=== PATIENT | female | born 1945 | race Caucasian/White ===

== ENCOUNTER 2021-10-12 15:02 | Inpatient (IN) | payer OTHER ==
[~2021-10-12] VITALS: Ht 165.1 cm; Wt 63.5 kg
[2021-10-12 15:06] VITALS: BP 135/76
--- NOTE | 2021-10-12 15:06 | NUR ---
PATIENT TO LOBBY
[2021-10-12] MEDS ORDERED: MORPHINE SULFATE 4 MG/ML SYR IVP ONE (15:10)
[2021-10-12] MEDS ORDERED: ONDANSETRON 4 MG/2 ML VIAL IVP ONE (15:10)
[2021-10-12 16:10] LABS: BASOPHILS # (AUTO) 0.1 K/uL (0.00-0.22); BASOPHILS % (AUTO) 0.6 % (0.0-2.0); EOSINOPHILS # (AUTO) 0.1 K/uL (0-0.4); EOSINOPHILS % (AUTO) 0.4 % (0.0-4.0); HEMATOCRIT 40.7 % (36-48); HEMOGLOBIN 13.2 g/dL (12.0-16.0); LYMPHOCYTES # (AUTO) 2.2 K/uL (2.5-16.5); MEAN CORPUSCULAR HEMOGLOBIN 29 pg (27-31); MEAN CORPUSCULAR HGB CONC 32 g/dL (33-37); MEAN CORPUSCULAR VOLUME 88.2 fL (80-94); MONOCYTES # (AUTO) 0.8 K/uL (0.8-1.0); MONOCYTES % (AUTO) 4.5 % (1.7-9.3); NEUTROPHILS # (AUTO) 15.3 K/uL (1.8-7.7); NEUTROPHILS % (AUTO) 82.5 % (42.2-75.2); PLATELET COUNT (AUTO) 516 K/uL (140-450); RED BLOOD CELL COUNT(AUTO) 4.62 MIL/uL (4.20-5.40); RED CELL DISTRIBUTION WIDTH 14.8 % (11.6-13.7); WHITE BLOOD COUNT (AUTO) 18.5 K/uL (4.8-10.8)
[2021-10-12] MEDS ORDERED: MORPHINE SULFATE 4 MG/ML SYR ONE (16:36)
[2021-10-12] MEDS ORDERED: ONDANSETRON 4 MG/2 ML VIAL ONE (16:36)
[2021-10-12 16:41] LABS: ALBUMIN 3.6 g/dL (3.4-5.0); ANION GAP 18.6 (8-16); ASPARTATE AMINOTRANSFERASE 25 U/L (15-37); CARBON DIOXIDE 25.3 mmol/L (21-32); CHLORIDE 98 mmol/L (98-107); CREATININE 0.9 mg/dL (0.6-1.3); GLUCOSE 175 mg/dL (74-106); MAGNESIUM 1.5 mg/dL (1.8-2.4); POTASSIUM 3.9 mmol/L (3.5-5.1); SODIUM SERUM 138 mmol/L (136-145); TOTAL BILIRUBIN 1.3 mg/dL (0.0-1.0); UREA NITROGEN, BLOOD 14 mg/dL (7-18)
--- NOTE | 2021-10-12 16:45 | NUR ---
SUNDAY SWABBED AND GIVEN TO LAB AT THIS TIME
[2021-10-12 17:15] LABS: LIPASE 3892 U/L (73-393)
[2021-10-12] MEDS ORDERED: NACL 0.9% 2,000 ML IV ONE (19:55)
[2021-10-12] MEDS ORDERED: PIPERACILLIN/TAZOBACTAM 3.375 GM in DEXTROSE 5% 50 ML IV ONE (19:55)
[2021-10-12] MEDS: NACL 0.9% 1,000 ML IV SCH ×3 (20:05→21:00)
--- NOTE | 2021-10-12 20:10 | NUR ---
Dr. Major called with request for lab results. Dr. Major verbally informed of lab results over phone. Dr. Major verbalized understanding, stated "I'll come see her," but did not give any new orders.
[2021-10-12] MEDS ORDERED: PIPERACILLIN/TAZOBACTAM 3.375 GM VIAL IV ONE ×2 (20:36→21:00)
[2021-10-12] MEDS ORDERED: ONDANSETRON 4 MG/2 ML VIAL IVP PRN (20:40)
[2021-10-12] MEDS ORDERED: MORPHINE SULFATE 2 MG/ML SYR IVP ONE (20:40)
[2021-10-12] MEDS ORDERED: ACETAMINOPHEN 325 MG TAB PO PRN (20:45)
[2021-10-12] MEDS ORDERED: ZOLPIDEM 10 MG TAB PO PRN (20:45)
[2021-10-12] MEDS ORDERED: DOCUSATE SODIUM 100 MG GELCAP PO PRN (20:45)
[2021-10-12] MEDS ORDERED: POTASSIUM CHLORIDE 10 MEQ TABER PO PRN (20:45)
[2021-10-12] MEDS ORDERED: METO25TA PO (21:42)
[2021-10-12] MEDS ORDERED: ATOR10TA PO (21:42)
[2021-10-12] MEDS ORDERED: ONDA-188 PO (21:42)
[2021-10-12] MEDS ORDERED: LOSA1TAB PO (21:42)
[2021-10-12] MEDS ORDERED: MIRABULK PO (21:42)
[2021-10-12] MEDS ORDERED: SENN1TAB40 PO (21:42)
[2021-10-12] MEDS ORDERED: ASPI-1822 PO (21:42)
[2021-10-13] MEDS ORDERED: MAG SULF 2000 MG/WATER PREMIX 50 ML IV PRN
[2021-10-13 00:44] LABS: PROTHROMBIN TIME 10.9 secs (10.8-13.4)
--- NOTE | 2021-10-13 00:47 | NUR ---
URINE COLLECTED AND TAKEN TO LAB.
[2021-10-13 01:04] LABS: APPEARANCE,URINE CLEAR (CLEAR); BILIRUBIN,URINE 1+ (NEGATIVE); BLOOD, URINE TRACE-I (NEGATIVE); COLOR,URINE YELLOW (YELLOW); LEUKOCYTE ESTERASE ,URINE NEGATIVE (NEGATIVE); NITRITE, URINE NEGATIVE (NEGATIVE); UGLUCOSE NEGATIVE (NEGATIVE)
[2021-10-13 01:29] LABS: RBC,URINE 0-5 /HPF (0-5); WBC,URINE 0-5 /HPF (0-5)
[2021-10-13] MEDS: NACL 0.9% 1,000 ML IV SCH ×4 (02:50→20:24)
[2021-10-13] MEDS ORDERED: PIPERACILLIN/TAZOBACTAM 3.375 GM in DEXTROSE 5% 50 ML IV SCH ×2 (03:00→04:00)
[2021-10-13] MEDS ORDERED: PIPERACILLIN/TAZOBACTAM 3.375 GM VIAL IV ONE ×3 (04:41→20:14)
[2021-10-13 06:52] LABS: BASOPHILS # (AUTO) 0.1 K/uL (0.00-0.22); BASOPHILS % (AUTO) 0.8 % (0.0-2.0); EOSINOPHILS # (AUTO) 0.1 K/uL (0-0.4); EOSINOPHILS % (AUTO) 1.1 % (0.0-4.0); HEMATOCRIT 33.5 % (36-48); HEMOGLOBIN 11.1 g/dL (12.0-16.0); LYMPHOCYTES # (AUTO) 3.4 K/uL (2.5-16.5); LYMPHOCYTES % (AUTO) 30.3 % (20.5-51.1); MEAN CORPUSCULAR HEMOGLOBIN 29 pg (27-31); MEAN CORPUSCULAR HGB CONC 33 g/dL (33-37); MEAN CORPUSCULAR VOLUME 87.9 fL (80-94); MONOCYTES # (AUTO) 1.2 K/uL (0.8-1.0); MONOCYTES % (AUTO) 11.2 % (1.7-9.3); NEUTROPHILS # (AUTO) 6.3 K/uL (1.8-7.7); NEUTROPHILS % (AUTO) 56.6 % (42.2-75.2); PLATELET COUNT (AUTO) 421 K/uL (140-450); RED BLOOD CELL COUNT(AUTO) 3.81 MIL/uL (4.20-5.40); RED CELL DISTRIBUTION WIDTH 14.8 % (11.6-13.7); WHITE BLOOD COUNT (AUTO) 11.1 K/uL (4.8-10.8)
[2021-10-13 07:03] LABS: ANION GAP 8.9 (8-16); CARBON DIOXIDE 26.7 mmol/L (21-32); CHLORIDE 105 mmol/L (98-107); CREATININE 0.6 mg/dL (0.6-1.3); GLUCOSE 109 mg/dL (74-106); POTASSIUM 3.6 mmol/L (3.5-5.1); SODIUM SERUM 137 mmol/L (136-145); UREA NITROGEN, BLOOD 12 mg/dL (7-18)
--- NOTE | 2021-10-13 07:23 | NUR ---
Change of shift report given to AM shift nurse Veto Chauhan RN. AM shift nurse Veto Chauhan RN verbalized understanding of report, no further questions.
--- NOTE | 2021-10-13 09:36 | NUR ---
US TECH BEDSIDE TO DO ABDOMINAL US.
[2021-10-13] MEDS: PIPERACILLIN/TAZOBACTAM 3.375 GM in DEXTROSE 5% 50 ML IV SCH ×2 (13:35→20:24)
[2021-10-13] MEDS: MORPHINE SULFATE 2 MG/ML SYR IVP PRN ×2 (13:37→22:49)
[2021-10-13] MEDS: ONDANSETRON 4 MG/2 ML VIAL IVP PRN ×2 (13:38→22:56)
--- NOTE | 2021-10-13 14:07 | NUR ---
Pt keeps co hungry. dr. Parada was called for dietary. but Dr. Parada ordered still keep NPO. Possible to drain the abcess. pending to transfer.
--- NOTE | 2021-10-13 16:00 | NUR ---
RECEIVED PATIENT REPORT FROM ER NURSE FOR CONTINUITY OF CARE. ADMITTING DX OF ACUTE PANCREATITIS AND SEPSIS. HX OF PANCREATIC CA. AOX4, ABLE TO VERBALIZE NEEDS. ON ROOM AIR, NO DISTRESS NOTED. NO C/O PAIN. IV ON RAC 20 GAUGE, AND RH 20G RUNNING NS AT 150ML/HR. SKIN IS WARM, DRY, AND INTACT, WITH SURGICAL SCAR. DENIES PAIN AT THE MOMENT. PLAN OF CARE DISCUSSED. SAFETY PRECAUTIONS IN PLACE. CALL LIGHT WITHIN REACH. WILL CONTINUE TO MONITOR
--- NOTE | 2021-10-13 16:00 | NUR ---
PT GOT ROOM 104A. SENT PT TO TELE WITH VIOLA WITH STUDENT NURSE ASSISTANCE. REPORT GIVEN BEDSIDE TO ACCEPTING NURSE.
[2021-10-13 16:53] VITALS: BP 131/55
--- NOTE | 2021-10-13 18:00 | NUR ---
NO SIGNIFICANT CHANGE NOTED, RESTING IN BED, NO C/O PAIN, NO RESPIRATORY DISTRESS
--- NOTE | 2021-10-13 18:15 | NUR ---
PT'S SON AT BEDSIDE
--- NOTE | 2021-10-13 18:30 | NUR ---
ASSISTED PT TO COMMODE
--- NOTE | 2021-10-13 19:30 | NUR ---
RECEIVED BEDSIDE REPORT FROM DAY SHIFT RN FOR CONTINUITY OF CARE. PT IS AWAKE WITH SON BY BEDSIDE. PT IS AAOX4 ON RA. PT HAS BEDSIDE COMMODE AND USES IT WITH ASSISTANCE. PT HAS RIGHT HAND 20 GAUGE AND RIGHT AC 20 GAUGE. PT HAS NS 150 CC/HR. PT DENIES ANY PAIN RIGHT NOW. PLAN OF CARE DISCUSSED. WILL CONTINUE TO MONITOR THE PT.
[2021-10-13 20:00] VITALS: BP 129/43
--- NOTE | 2021-10-13 20:32 | NUR ---
ALL DUE MEDS GIVEN. NO ADVERSE REACTION NOTED. WILL CONTINUE TO MONITOR THE PT.
--- NOTE | 2021-10-13 23:55 | NUR ---
PT COMPLAIN OF ABD PAIN AND WANTED MORPHINE. MORPHINE GIVEN PER MD ORDER. NO OTHER COMPLAINS. WILL CONTINUE TO MONITOR THE PT.
[2021-10-14] VITALS: BP 140/54
--- NOTE | 2021-10-14 02:12 | NUR ---
PT IS SLEEPING COMFORTABLY IN BED. PT IS NOT IN ANY RESPIRATORY DISTRESS. CALL LIGHT WITHIN REACH. ALL SAFETY MEASURES TAKEN. WILL CONTINUE TO MONITOR THE PT.
[2021-10-14 04:00] VITALS: BP 127/62
[2021-10-14] MEDS ORDERED: PIPERACILLIN/TAZOBACTAM 3.375 GM VIAL IV ONE (04:00)
[2021-10-14] MEDS: PIPERACILLIN/TAZOBACTAM 3.375 GM in DEXTROSE 5% 50 ML IV SCH ×3 (04:14→20:41)
[2021-10-14] MEDS: NACL 0.9% 1,000 ML IV SCH ×3 (04:14→17:28)
--- NOTE | 2021-10-14 04:20 | NUR ---
SCHEDULE MEDS GIVEN. NO ADVERSE REACTION NOTED. PT DENIES ANY PAIN RIGHT NOW AND HAS NO COMPLAINS. WILL CONTINUE TO MONITOR THE PT.
[2021-10-14 06:37] LABS: ANION GAP 11.7 (8-16); CHLORIDE 108 mmol/L (98-107); CREATININE 0.6 mg/dL (0.6-1.3); GLUCOSE 103 mg/dL (74-106); POTASSIUM 3.7 mmol/L (3.5-5.1); SODIUM SERUM 142 mmol/L (136-145); UREA NITROGEN, BLOOD 10 mg/dL (7-18)
[2021-10-14 07:11] LABS: BASOPHILS # (AUTO) 0.1 K/uL (0.00-0.22); BASOPHILS % (AUTO) 0.8 % (0.0-2.0); EOSINOPHILS # (AUTO) 0.1 K/uL (0-0.4); EOSINOPHILS % (AUTO) 0.8 % (0.0-4.0); HEMATOCRIT 32.1 % (36-48); HEMOGLOBIN 10.4 g/dL (12.0-16.0); LYMPHOCYTES # (AUTO) 2.9 K/uL (2.5-16.5); LYMPHOCYTES % (AUTO) 21.1 % (20.5-51.1); MEAN CORPUSCULAR HEMOGLOBIN 29 pg (27-31); MEAN CORPUSCULAR HGB CONC 32 g/dL (33-37); MEAN CORPUSCULAR VOLUME 89.1 fL (80-94); MONOCYTES # (AUTO) 1.4 K/uL (0.8-1.0); MONOCYTES % (AUTO) 10.2 % (1.7-9.3); NEUTROPHILS # (AUTO) 9.1 K/uL (1.8-7.7); NEUTROPHILS % (AUTO) 67.1 % (42.2-75.2); PLATELET COUNT (AUTO) 395 K/uL (140-450); RED CELL DISTRIBUTION WIDTH 14.4 % (11.6-13.7); WHITE BLOOD COUNT (AUTO) 13.6 K/uL (4.8-10.8)
--- NOTE | 2021-10-14 07:18 | NUR ---
ENDORSED PT TO DAY SHIFT RN FOR CONTINUITY OF CARE. PT IS STABLE.
[2021-10-14 08:00] VITALS: BP 133/64
--- NOTE | 2021-10-14 10:39 | NUR ---
DC PLANNING: ORDER RECEIVED FOR [facility] TRANSFER FOR DRAINAGE OF PANCREATIC CYST. ORDER FAXED TO [facility], PER LAST MANUEL AT [facility] TRANSFER WILL NOT BE AUTHORIZED PATIENT CAN HAVE THIS DONE OP. REVIEW OF GI NOTES INDICATE THAT PATIENT HAS BEEN GOING TO [facility] IN THE PAST FOR THIS PROCEDURE. CM WILL FOLLOW. Addendum: 10/14/21 at 1522 by Karen To CM DC PLANNING: THE PATIENT PRESENTED FROM HOME WITH C/O DIFFUSE ABDOMINAL PAIN. NEWLY DIAGNOSES WITH PANCREATIC CANCER WITH PARTIAL SPLENECTOMY AND PARTIAL PANCREATECTOMY AT [facility] ON August. WBC'S 18.5, LIPASE 3892, ANION GAP 18.6, TOTAL BILI 1.3. CT ABD/PELVIS SHOWS HYPODENSE PANCREATIC MASS SUSPICIOUS FOR ABSCESS. ORDERS FOR GI CONSULT, STARTED ON ZOSYN AND IVF'S. LAST SPOKE WITH THE PATIENT AT BEDSIDE AND CONFIRMED HER ADDRESS AND PHONE NUMBER. SHE LIVES IN A SINGLE STORY HOUSE ALONE BUT HER TWO SONS LIVE IN CLOSE PROXIMITY ON THE SAME BLOCK. THE PATIENT HAS NOT HAD AN APPETITE SINCE HER SURGERY IN AUGUST AND STATES HER ONCOLOGIST DR CALDWELL WOULD LIKE HER TO GAIN WEIGHT BEFORE STARTING CHEMOTHERAPY. SHE HAS DME OF A FWW AND WC AND IS INDEPENDENT IN ALL ACTIVITIES. SHE HAD ONE HOME HEALTH VISIT AFTER HER HOSPITALIZATION IN AUGUST BUT CAN'T REMEMBER THE AGENCY NAME. LAST SPOKE WITH KALEB AT [facility], INSURANCE WILL AUTHORIZE HER PANCREATIC CYST/ABSCESS DRAINAGE AND WILL IDENTIFY A CONTRACTED PROVIDER BUT THE PATIENT WILL NEED TO MAKE HER OWN APPOINTMENT. THE PATIENTS FAMILY WILL PROVIDE TRANSPORTATION WHEN SHE IS STABLE FOR DC, CM WILL FOLLOW. Addendum: 10/15/21 at 1051 by Karen To CM DC PLANNING: ORDER FOR OUTPATIENT DRAINAGE OF PANCREATIC CYST FAXED TO [facility], WILL WAIT FOR INFORMATION ON AUTHORIZED MD AND WILL GIVE THIS TO THE PATIENT. LAST ALSO SPOKE WITH HER SON KATELYN BY PHONE AND ANSWERED QUESTIONS ABOUT LOS AND INSURANCE INVOLVEMENT. ENDORSED THAT [facility] WILL PROVIDE MD INFORMATION FOR PATIENT/FAMILY TO ARRANGE OP PROCEDURE, LAST WILL ALSO SPEAK WITH THE MD AND PROVIDE ANY INFORMATION THEY NEED TO PROCEED. FAMILY WOULD LIKE THE PATIENT TO DC ON PAIN MEDICATION AND ASKED ABOUT CONTINUING ABX AFTER DC, LAST PASSED THESE CONCERNS TO THE ATTENDING MD. LAST WILL FOLLOW. Addendum: 10/15/21 at 1529 by Karen To CM DC PLANNING: LAST HAS CALLED [facility] SEVERAL TIMES TO ASK FOR AN UPDATE ON INFORMATION REGARDING THE MD AUTHORIZED FOR THE PATIENTS PROCEDURE, NO RESPONSE YET. CM SPOKE WITH THE PATIENT AT BEDSIDE TO ENDORSE THAT CM WILL CALL HER WITH THE INFORMATION REGARDING THIS ONCE IT'S RECEIVED FROM [facility]. CM WILL FOLLOW.
[2021-10-14 12:00] VITALS: BP 133/64
--- NOTE | 2021-10-14 15:01 | NUR ---
PATIENT HAS BEEN SCREENED AND CATEGORIZED HIGH NUTRITION RISK. PATIENT WILL BE SEEN WITHIN 1-2 DAYS OF ADMISSION. 10/14/21 REFERRAL RECEIVED FOR UNINTENTIONAL WEIGHT LOSS AND DECREASED APPETITE [address]
[2021-10-14] MEDS: MORPHINE SULFATE 2 MG/ML SYR IVP PRN ×2 (15:04→23:37)
--- NOTE | 2021-10-14 16:22 | NUR ---
10/14/21 RD INITIAL ASSESSMENT COMPLETED PLEASE REFER TO NUTRITION ASSESSMENT UNDER CARE ACTIVITY FOR ESTIMATED NUTRITIONAL NEEDS. 1. CONTINUE CLEAR LIQUID DIET TOLERATED -WHEN/IF MEDICALLY APPROPRIATE, RECOMMEND LOW-FAT DIET 2. RECOMMEND ENSURE CLEAR TID FOR NUTRITION SUPPORT 3. PROVIDED NUTRITION EDUCATION ON PANCREATITIS, LOW-FAT DIET WITH HANDOUTS 4. RD TO FOLLOW-UP 3-5 DAYS, MODERATE RISK [address]
[2021-10-14] MEDS: ONDANSETRON 4 MG/2 ML VIAL IVP PRN (17:26)
--- NOTE | 2021-10-14 18:38 | NUR ---
PT AOX4, VSS, NO ACUTE DISTRESS, DENIES SOB, TOLERATING 2LNC, C/O ABD PAIN - RELIEVED BY PRN MEDICATION, SAFELY UTILIZES BEDSIDE COMMODE, IV CLEAN DRY AND INTACT, SAFETY MEASURES MAINTAINED, CALL LIGHT WITHIN REACH, BED LOCKED AND IN LOWEST POSITION, PT TOLERATED IV ABX, FAMILY UPDATED, PT FREE FROM INJURY AND STABLE FOR ENDORSEMENT TO PM SHIFT.
--- NOTE | 2021-10-14 19:25 | NUR ---
RECEIVED PT FROM AM NURSE FOR CONTINUITY OF CARE.PT IS STABLE
[2021-10-14 20:00] VITALS: BP 151/59
--- NOTE | 2021-10-14 21:30 | NUR ---
ALL SCHEDULED MEDICATIONS GIVEN,NO ADVERSE REACTIONS NOTED
--- NOTE | 2021-10-15 01:00 | NUR ---
PATIENT ASLEEP,RESPIRATION EVEN AND UNLABORED,ALL SAFETY MEASURES IN PLACE,CALL LIGHT WITHIN EASY REACH
[2021-10-15] MEDS: NACL 0.9% 1,000 ML IV SCH ×3 (01:30→14:46)
[2021-10-15] MEDS: PIPERACILLIN/TAZOBACTAM 3.375 GM in DEXTROSE 5% 50 ML IV SCH ×2 (04:37→12:31)
--- NOTE | 2021-10-15 06:00 | NUR ---
PATIENT IS AWAKE, NO COMPLAIN OF PAIN,NO DISTRESS NOTED
[2021-10-15 07:19] LABS: BASOPHILS # (AUTO) 0.1 K/uL (0.00-0.22); BASOPHILS % (AUTO) 0.9 % (0.0-2.0); EOSINOPHILS # (AUTO) 0.2 K/uL (0-0.4); EOSINOPHILS % (AUTO) 1.6 % (0.0-4.0); HEMATOCRIT 31.3 % (36-48); HEMOGLOBIN 10.4 g/dL (12.0-16.0); LYMPHOCYTES # (AUTO) 2.7 K/uL (2.5-16.5); LYMPHOCYTES % (AUTO) 20.8 % (20.5-51.1); MEAN CORPUSCULAR HEMOGLOBIN 29 pg (27-31); MEAN CORPUSCULAR HGB CONC 33 g/dL (33-37); MEAN CORPUSCULAR VOLUME 87.8 fL (80-94); MONOCYTES # (AUTO) 1.3 K/uL (0.8-1.0); MONOCYTES % (AUTO) 9.8 % (1.7-9.3); NEUTROPHILS # (AUTO) 8.5 K/uL (1.8-7.7); NEUTROPHILS % (AUTO) 66.9 % (42.2-75.2); PLATELET COUNT (AUTO) 399 K/uL (140-450); RED BLOOD CELL COUNT(AUTO) 3.57 MIL/uL (4.20-5.40); RED CELL DISTRIBUTION WIDTH 14.5 % (11.6-13.7); WHITE BLOOD COUNT (AUTO) 12.8 K/uL (4.8-10.8)
--- NOTE | 2021-10-15 07:30 | NUR ---
RECEIVED REPORT FROM NIGHTSHIFT NURSE. PT A/O X4. ABLE TO MAKE NEEDS KNOWN. DENIES PAIN. NO SOB, RR EVEN & UNLABORED. ON RA. HOB ELEVATED. R HAND #20 WITH NS @ 150 ML/HR. RAC #20 SL. NEEDS ALL MET AT THIS TIME. SAFETY MEASURES IN PLACE. EXPLAIN TO USE CALL LIGHT.
[2021-10-15 07:32] LABS: ANION GAP 11.7 (8-16); CARBON DIOXIDE 26.2 mmol/L (21-32); CHLORIDE 107 mmol/L (98-107); CREATININE 0.5 mg/dL (0.6-1.3); GLUCOSE 119 mg/dL (74-106); SODIUM SERUM 142 mmol/L (136-145); UREA NITROGEN, BLOOD 8 mg/dL (7-18)
[2021-10-15 07:37] LABS: POTASSIUM 2.9 mmol/L (3.5-5.1)
[2021-10-15 08:00] VITALS: BP 143/67
[2021-10-15] MEDS ORDERED: KCL 20 MEQ/WATER INJ PREMIX 200 ML IV ONE (08:20)
[2021-10-15] MEDS ORDERED: MAG SULF 2000 MG/WATER PREMIX 50 ML IV ONE (08:30)
--- NOTE | 2021-10-15 09:49 | NUR ---
PT C/O R HAND IV SITE PAIN FROM IVPB KCL. DISCONTINUED, FLUSHED WITH NS, AND CONNECTED TO RAC #20 WITH DECREASED RATE. PT STATES NO MORE PAIN. EXPLAINED TO USE CALL LIGHT IF PT IS FEELING PAIN AT SITE AGAIN. SAFETY MEASURES IN PLACE.
[2021-10-15] MEDS: MORPHINE SULFATE 2 MG/ML SYR IVP PRN (10:47)
[2021-10-15] MEDS ORDERED: AMOX-999 PO (10:58)
[2021-10-15] MEDS ORDERED: POTA10TA70 PO (10:58)
[2021-10-15] MEDS ORDERED: HYDR-5191 PO (11:00)
[2021-10-15 11:06] VITALS: BP 143/67
--- NOTE | 2021-10-15 12:47 | NUR ---
PT WITH TRAY AT BEDSIDE. HOB ELEVATED. DENIES PAIN. NO SOB NOTED. ANTIBIOTIC IVPB STARTED AND INFUSING. NEEDS ALL MET AT THIS TIME. SAFETY MEASURES IN PLACE.
[2021-10-15 16:00] VITALS: BP 143/84
--- NOTE | 2021-10-15 16:46 | NUR ---
PT DISCHARGE INSTRUCTIONS GIVEN. PT VERBALIZED UNDERSTANDING. IV CATHETER DISCONTINUED, CATHETER INTACT. NO ACTIVE BLEEDING. SON AT BEDSIDE. PT WHEELED OUT VIA WHEELCHAIR.
== END 2021-10-15 16:54 | disposition home or self-care (01) | DRG 871 ==
LOC: MED 15:02 → MTU 20:09
PROVIDERS: ADMIT Family Medicine; ATTEND Family Medicine
DX: A41.9 Sepsis, unspecified organism (principal); K85.90 Acute pancreatitis without necrosis or infection, unspecified; E83.42 Hypomagnesemia; I10 Essential (primary) hypertension; E78.5 Hyperlipidemia, unspecified; K86.9 Disease of pancreas, unspecified; Z20.822 Contact with and (suspected) exposure to COVID-19; Z90.411 Acquired partial absence of pancreas; Z85.07 Personal history of malignant neoplasm of pancreas; Z90.81 Acquired absence of spleen; Z80.0 Family history of malignant neoplasm of digestive organs; Z79.899 Other long term (current) drug therapy; Z79.82 Long term (current) use of aspirin
CPT/HCPCS: 36415; 76700; 80048; 80053; 81001; 83036; 83690; 83735; 85025; 85610; 85730; 87040; 87081; 96361; 96365; 96375; 96376; 99285; J1644; J2270; J2405; J2543; J3475; J3480; J7030; J7060; Q0092; Q9967